=== PATIENT | male | born 1975 | race Hispanic/Latino ===

== ENCOUNTER 2023-08-26 17:25 | Emergency (ER) | payer SELFPAY ==
[2023-08-26] VITALS (7 sets, daily range): BP systolic 102–120; BP diastolic 66–78; BMI 24.9
[2023-08-26 17:37] LABS: % Basophils 1.2 % (0-2); % Eosinophils 4.9 % (0-6); % Immature Granulocytes 0.5 % (0-0.5); % Lymphocytes 42.6 % (20.5-51.1); % Monocytes 7.5 % (1.7-9.3); % Neutrophils 43.3 % (42.2-75.2); Absolute Basophils 0.1 10^3/uL (0-0.2); Absolute Eosinophils 0.2 10^3/uL (0-0.7); Absolute Lymphocytes 1.8 10^3/uL (1.2-3.4); Absolute Monocytes 0.3 10^3/uL (0.1-0.6); Absolute Neutrophils 1.8 10^3/uL (1.4-6.5); Hematocrit 34.2 % (39.0-52.0); Hemoglobin 12.8 g/dL (13.0-18.0); Mean Corp Hgb Conc. 37.4 g/dL (33.0-37.0); Mean Corpuscular Hgb 36.9 pg (27.0-31.0); Mean Corpuscular Volume 98.6 fL (80.0-94.0); Mean Platelet Volume 9.4 fL (7.4-10.4); Nucleated Red Blood Cells % 0 % (-); Platelet Count 215 10^3/uL (130-400); Red Blood Cell Count 3.47 10^6/uL (4.70-6.10); White Blood Cell Count 4.1 10^3/uL (4.8-10.8)
[2023-08-26 17:51] LABS: ALT (SGPT) 41 U/L (0-50); AST (SGOT) 56 U/L (17-59); Albumin 4.3 g/dl (3.5-5.0); Alkaline Phosphatase 64 U/L (38-126); Blood Urea Nitrogen 4 mg/dl (9-20); Calcium 8.7 mg/dl (8.4-10.2); Carbon Dioxide 19 mmol/L (22-30); Chloride 105 mmol/L (98-107); Estimated Creatinine Clearance > 125 ml/min; Glucose 101 mg/dl (70-99); Sodium 137 mmol/L (135-145); Total Bilirubin 0.4 mg/dl (0.2-1.3); Total Protein 7.1 g/dl (6.3-8.2); eGFR > 60.00
[2023-08-26 18:00] LABS: Troponin I < 0.012 ng/ml
--- NOTE | 2023-08-26 18:39 | ED.GENMED ---
History of Present Illness
<Salome Blackwell NP - Last Filed: 08/26/23 18:43>
General
Chief Complaint: Alcohol Problem
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
Exam Limitations: other (intoxicated.)
Time Seen by Provider: 08/26/23 18:09
Nursing documentation reviewed up to this point in time: agreed with
History of Present Illness
History of Present Illness:
Patient found by police sleeping on sidewalk. Brought to ED via EMS. He admits to drinking 24 beers today. Admits to drinking daily. He reports he is homeless. Initial report of chest pain when found by police. He denies any chest pain.
Sleeping but arousable.
Past History
<Salome Blackwell LIMEHOUSE WORKER - Last Filed: 08/26/23 18:43>
Past History
ED Past Medical History: None
ED Past Surgical History: None
Social History
Tobacco: Smoker (1ppd)
Alcohol: Daily
Drug: None
Living: homeless
Review of Systems
<Salome Blackwell NP - Last Filed: 08/26/23 18:43>
Review of Systems
Allergies reviewed?: Yes
All Other Systems: ROS reviewed and negative except as documented in HPI and ROS
Constitutional: Reports no symptoms
EENT: Reports no symptoms
Respiratory: Reports no symptoms
Cardiac: Reports no symptoms (Report from police of chest pain when found. He denies chest pain)
ABD/GI: Reports no symptoms
: Reports no symptoms
Musculoskeletal: Reports no symptoms
Skin: Reports no symptoms
Neurological: Reports other (intoxicated)
Psychiatric: Reports no symptoms
Phy Exam
<Salome Blackwell NP - Last Filed: 08/26/23 18:43>
General Physical Exam
General Presentation: well appearing and no apparent distress
General age: appears stated age
General Skin: warm and dry
General Habitus: normal
General Mental: appears intoxicated
Cardiovascular Exam
Cardiovascular Exam: regular rate/rhythm and no edema
Pulmonary Exam
Pulmonary Exam: lungs clear and no respiratory distress
Gastrointestinal Exam
Gastrointestinal Exam: normal bowel sounds, non tender, soft and no organomegaly
Musculoskeletal Exam
Musculoskeletal Exam: full ROM and neuro vasc intact
Skin Exam
Skin Exam: normal color, warm/dry and no rash
Psychiatric Exam
Psychiatric Exam: other (intoxicated)
Scores
<Timur Cardenas DO - Last Filed: 08/27/23 03:46>
Withdrawal Assessment of Alcohol
Withdrawal Assessment Completed?: No
Course
<Salome Blackwell LIMEHOUSE WORKER - Last Filed: 08/26/23 18:43>
Orders/Labs/Results
Orders:
Orders
08/26/23 17:28
Electrocardiogram (*1) Urgent
Reason for Study: Chest Pain
EKG- Treatment ONCE
IV Insert/Care/Rem.- Treatment PRN
08/26/23 17:31
Alcohol Urgent
Complete Blood Count/With Diff Urgent
Comprehensive Metabolic Panel Urgent
Troponin I Urgent
08/26/23 18:38
Add On- LAB Urgent
Tests Added?: alcohol
0.9% Sodium Chloride 1000 ml [Nss] 1,000 ml IV BOLUS
Abnormal Lab Results
08/26/23
17:31
WBC 4.1 L 10^3/uL
(4.8-10.8)
RBC 3.47 L 10^6/uL
(4.70-6.10)
Hgb 12.8 L g/dL
(13.0-18.0)
Hct 34.2 L %
(39.0-52.0)
MCV 98.6 H fL
(80.0-94.0)
MCH 36.9 H pg
(27.0-31.0)
MCHC 37.4 H g/dL
(33.0-37.0)
Carbon Dioxide 19 L mmol/L
(22-30)
BUN 4 L mg/dl
(9-20)
Creatinine 0.6 L mg/dL
(0.7-1.3)
Glucose 101 H mg/dl
(70-99)
08/26/23 17:31
08/26/23 17:31
Vital Signs
Initial and Last Documented VS:
Initial Vital Signs
Temp Pulse Resp BP Pulse Ox
97.8 F 66 16 114/78 95
08/26/23 17:37 08/26/23 17:37 08/26/23 17:37 08/26/23 17:37 08/26/23 17:37
Last Documented Vital Signs
Temp Pulse Resp BP Pulse Ox
97.8 F 65 12 104/66 97
08/26/23 17:37 08/26/23 23:30 08/26/23 22:30 08/26/23 23:00 08/26/23 23:30
Kateylt;Timur Cardenas, DO - Last Filed: 08/27/23 03:46>
Orders/Labs/Results
Orders:
Orders
08/26/23 17:28
Electrocardiogram (*1) Urgent
Reason for Study: Chest Pain
EKG- Treatment ONCE
IV Insert/Care/Rem.- Treatment PRN
08/26/23 17:31
Alcohol Urgent
Complete Blood Count/With Diff Urgent
Comprehensive Metabolic Panel Urgent
Troponin I Urgent
08/26/23 18:38
Add On- LAB Urgent
Tests Added?: alcohol
0.9% Sodium Chloride 1000 ml [Nss] 1,000 ml IV BOLUS
Abnormal Lab Results
08/26/23
17:31
WBC 4.1 L 10^3/uL
(4.8-10.8)
RBC 3.47 L 10^6/uL
(4.70-6.10)
Hgb 12.8 L g/dL
(13.0-18.0)
Hct 34.2 L %
(39.0-52.0)
MCV 98.6 H fL
(80.0-94.0)
MCH 36.9 H pg
(27.0-31.0)
MCHC 37.4 H g/dL
(33.0-37.0)
Carbon Dioxide 19 L mmol/L
(22-30)
BUN 4 L mg/dl
(9-20)
Creatinine 0.6 L mg/dL
(0.7-1.3)
Glucose 101 H mg/dl
(70-99)
08/26/23 17:31
08/26/23 17:31
Vital Signs
Initial and Last Documented VS:
Initial Vital Signs
Temp Pulse Resp BP Pulse Ox
97.8 F 66 16 114/78 95
08/26/23 17:37 08/26/23 17:37 08/26/23 17:37 08/26/23 17:37 08/26/23 17:37
Last Documented Vital Signs
Temp Pulse Resp BP Pulse Ox
97.8 F 65 12 104/66 97
08/26/23 17:37 08/26/23 23:30 08/26/23 22:30 08/26/23 23:00 08/26/23 23:30
Kateylt;Timur Cardenas DO - Last Filed: 08/27/23 03:46>
*Critical Care Note
Total Time (30-74mins, 75-104mins- exclusive of procedures): Not Applicable
ED Attending Note
<Salome Blackwell NP - Last Filed: 08/26/23 18:43>
-
Portions of this chart may have been created with voice recognition software.� Occasional wrong word or��sound alike� substitutions may have occurred due to the inherent limitations of voice recognition software.
<Timur Cardenas DO - Last Filed: 08/27/23 03:46>
ED Attending Note
Patient seen and examined by attending physician: Yes
I performed the substantive portion of visit, reviewed & personally made and approve the management plan that is documented in note by myself or RANJANA.: Yes
ED Attending Note:
Seen with LIMEHOUSE WORKER with assessment and plan intoxicated male, 3:45 AM he is easily arousable, apparently has been trying to call his friend to pick him up but no one picked up the phone, will monitor until he is more sober or until the responsible adult
can take him home
Discharge Plan
Departure
Patient Disposition: Home (Routine Discharge)
Date of Disposition: 08/27/23
Time of Disposition: 03:46
Patient with high blood pressure during this ER visit?: No
Condition: Good
Covid-19: Not Applicable
Discharge Problem:
Alcohol abuse
Instructions: Hemorrhoids, Alcohol Use Disorder (DC)
Referrals:
[facility] - Next open appointment
Interventions
Interventions:
*Risk Screen - Suicide Last Done: 08/26/23 17:28
*General Assessment Last Done: 08/26/23 17:28
*Neglect/Abuse Screening Last Done: 08/26/23 17:28
*ED COVID-19 Vaccine History Last Done: 08/26/23 17:28
ED- Neurological Assessment Last Done: 08/26/23 17:28
ED-Psychological Assessment Last Done: 08/26/23 17:28
Discharge Date and Time
Print Language: ITALIAN
[2023-08-26] MEDS: NSS 1000 IV (18:55)
[2023-08-26 19:32] LABS: Alcohol 395 mg/dl
[2023-08-27] VITALS: BP 100/58
[2023-08-27 05:34] VITALS: BP 111/77
== END 2023-08-27 06:06 | disposition home or self-care (01) ==
LOC: EMR 17:25
PROVIDERS: Emergency Medicine; EMERGENCY PHYSICIAN Emergency Medicine
DX: F10.129 Alcohol abuse with intoxication, unspecified (principal); Z59.00 Homelessness unspecified; F17.200 Nicotine dependence, unspecified, uncomplicated; R07.9 Chest pain, unspecified
CPT/HCPCS: 99285; 96360; 80053; 82077; 84484; 85025; 93005